=== PATIENT | female | born 1960 | race Caucasian/White ===

== ENCOUNTER 2021-03-06 14:32 | Emergency (ER) | payer OTHER ==
[2021-03-06 15:35] VITALS: BP 117/87; PULSE 104; RESP 19; TEMP 97.3
[2021-03-06] MEDS ORDERED: HYDROmorphone 0.5 MG/0.5 ML SYRINGE IVP STA (19:28)
--- NOTE | 2021-03-06 19:36 | ED ---
General Adult HPI - General Chief complaint: Abdominal Pain Stated complaint: Abd Pain Time Seen by Provider: 03/06/21 19:03 Source: patient Mode of arrival: wheelchair Limitations: no limitations - History of Present Illness Initial comments: Dictation was produced using [employer] dictation software. please excuse any grammatical, word or spelling errors. Chief Complaint: 60-year-old female presents emergency department for abdominal pain. History of Present Illness: 60-year-old female she reports that she is here in emergency department today for abdominal pain. Patient's history of colon cancer. She sees an oncologist in [place]. She is undergoing chemotherapy for colon cancer. Patient states auscultation was in emergency department in [place]. She was admitted however left AGAINST MEDICAL ADVICE because there were no beds. She states that the pain is in her mid epigastric area. She is not sure what her diagnosis was but says yes when asked if she had a blockage. Denies any nausea or vomiting. She states that she did have a computed tomography scan.. Denies any fevers. Patient having spasms of pain. The ROS documented in this emergency department record has been reviewed and confirmed by me. Those systems with pertinent positive or negative responses have been documented in the HPI. All other systems are other negative and/or noncontributory. PHYSICAL EXAM: General Impression: Alert and oriented x3, acute distress secondary to pain HEENT: Normocephalic atraumatic, extra-ocular movements intact, pupils equal and reactive to light bilaterally, mucous membranes moist. Cardiovascular: Heart regular rate and rhythm Chest: Able to complete full sentences, no retractions, no tachypnea Abdomen: abdomen soft, non-tender, non-distended, no organomegaly Musculoskeletal: Pulses present and equal in all extremities, no peripheral edema Motor: no focal deficits noted Neurological: CN II-XII grossly intact, no focal motor or sensory deficits noted Skin: Intact with no visualized rashes Psych: Normal affect and mood ED course: 60-year-old female past medical history of colon cancer in the emergency department for abdominal pain. She was in the ER in [place] recently left AGAINST MEDICAL ADVICE due to lack of beds. Signs upon arrival shows findings within acceptable limits. Laboratory evaluation obtained. CBC is unremarkable. Metabolic panel is within acceptable limits. She does have some mild acidosis and hyperglycemia of 65. Rest of labs unremarkable. Patient given analgesics.. She was reevaluated at bedside at 10:45 PM. She is sleeping and resting comfortably she does not appea r to be any significant distress. Repeat blood glucose was checked. Patient's been in the emergency department for 8 hours. We still have not received any records from [facility]. My loan secretary reports that they are too busy to send fax report from patient's recent admission. Patient is tolerating oral intake at the bedside. She states that she has been having this pain for several months. Disposition options were discussed with patient. She feels dissatisfied that there is no answer for what causing her symptoms. She was to be discharged. However at this point patient does appear to be stable for discharge. Patient is strongly advised to follow-up with her primary care doctor as soon as possible. Return precautions discussed. - Related Data Home Medications Medication Instructions Recorded Confirmed Cranberry Fruit Extract [Cranberry] 500 mg PO DAILY 03/06/21 03/06/21 Cyanocobalamin (Vitamin B-12) 1,000 mcg PO DAILY 03/06/21 03/06/21 [Vitamin B-12] Docusate [Colace] 100 mg PO DAILY 03/06/21 03/06/21 Folic Acid 1 mg PO DAILY 03/06/21 03/06/21 Gabapentin [Neurontin] 300 mg PO BID 03/06/21 03/06/21 HYDROcodone/APAP 10-325MG [[place]dridge 1 tab PO Q6HR PRN 03/06/21 03/06/21 10-325] Lidocaine-Prilocaine Cream [Emla 1 applic TOPICAL DAILY PRN 03/06/21 03/06/21 Cream 2.5%/2.5%] Prochlorperazine Maleate 10 mg PO Q8H PRN 03/06/21 03/06/21 Promethazine [Phenergan] 25 mg PO Q6HR PRN 03/06/21 03/06/21 Pyridoxine HCl (Vitamin B6) 100 mg PO DAILY 03/06/21 03/06/21 [Vitamin B-6] fentaNYL 25MCG/HR PATCH [Duragesic 1 patch TRANSDERM Q72H PRN 03/06/21 03/06/21 25MCG/HR] lisinopriL [Zestril] 20 mg PO DAILY PRN 03/06/21 03/06/21 ondansetron HCL [Zofran] 8 mg PO Q8H PRN 03/06/21 03/06/21 Allergies Allergy/AdvReac Type Severity Reaction Status Date / Time No Known Allergies Allergy Verified 03/06/21 20:37 Review of Systems ROS Statement: Those systems with pertinent positive or pertinent negative responses have been documented in the HPI. ROS Other: All systems not noted in ROS Statement are negative. Past Medical History Additional Past Medical History / Comment(s): colon cancer History of Any Multi-Drug Resistant Organisms: None Reported Past Surgical History: No Surgical Hx Reported Smoking Status: Current every day smoker Past Alcohol Use History: None Reported Past Drug Use History: None Reported General Exam Limitations: no limitations Course Vital Signs 03/06/21 15:32 Temperature 97.3 F L Pulse Rate 104 H Respiratory 19 Rate Blood Pressure 117/87 O2 Sat by Pulse 97 Oximetry Medical Decision Making - Lab Data Result diagrams: 03/06/21 20:10 03/06/21 20:10 Lab Results 03/06/21 03/06/21 03/06/21 Range/Units 20:10 20:10 22:53 WBC 9.9 (3.8-10.6) k/uL RBC 4.35 (3.80-5.40) m/uL Hgb 15.6 (11.4-16.0) gm/dL Hct 45.9 (34.0-46.0) % MCV 105.5 H (80.0-100.0) fL MCH 36.0 H (25.0-35.0) pg MCHC 34.1 (31.0-37.0) g/dL RDW 17.9 H (11.5-15.5) % Plt Count 512 H (150-450) k/uL MPV 7.7 Neutrophils % 68 % Lymphocytes % 23 % Monocytes % 5 % Eosinophils % 1 % Basophils % 1 % Neutrophils # 6.7 (1.3-7.7) k/uL Lymphocytes # 2.3 (1.0-4.8) k/uL Monocytes # 0.5 (0-1.0) k/uL Eosinophils # 0.1 (0-0.7) k/uL Basophils # 0.1 (0-0.2) k/uL Manual Slide Review Performed Anisocytosis Slight Macrocytosis Marked A Sodium 132 L (137-145) mmol/L Potassium 4.8 (3.5-5.1) mmol/L Chloride 98 (98-107) mmol/L Carbon Dioxide 18 L (22-30) mmol/L Anion Gap 16 mmol/L BUN 17 (7-17) mg/dL Creatinine 0.53 (0.52-1.04) mg/dL Est GFR (CKD-EPI)AfAm >90 (>60 ml/min/1.73 sqM) Est GFR (CKD-EPI)NonAf >90 (>60 ml/min/1.73 sqM) Glucose 65 L (74-99) mg/dL POC Glucose (mg/dL) 66 L (75-99) mg/dL POC Glu Flash Ranging Crewmember Elizabeth Herndon Calcium 10.5 H (8.4-10.2) mg/dL Total Bilirubin 0.5 (0.2-1.3) mg/dL AST 36 (14-36) U/L ALT 21 (4-34) U/L Alkaline Phosphatase 99 (38-126) U/L Total Protein 7.4 (6.3-8.2) g/dL Albumin 4.4 (3.5-5.0) g/dL Lipase 79 (23-300) U/L Disposition Clinical Impression: Abdominal pain Disposition: HOME SELF-CARE Condition: Good Instructions (If sedation given, give patient instructions): Abdominal Pain (ED) Is patient prescribed a controlled substance at d/c from ED?: No Referrals: Jeremías Thomas DO [Primary Care Provider] - 1-2 days
--- NOTE | 2021-03-06 20:06 | XR ---
EXAMINATION TYPE: XR abdomen 1V DATE OF EXAM: 03/06/2021 COMPARISON: None INDICATION: Abdomen pain history of colon cancer TECHNIQUE: Single view abdomen upright view FINDINGS: There is a normal bowel gas pattern. Psoas margins are normal. No free air is evident. No differential air-fluid levels are evident. No organomegaly is present. Scoliosis to the lumbar spine. IMPRESSION: 1. No acute abnormality.
[2021-03-06 20:26] LABS: Anisocytosis Slight; Basophils # (A) 0.1 k/uL (0-0.2); Basophils % (A) 1 %; Eosinophils # (A) 0.1 k/uL (0-0.7); Eosinophils % (A) 1 %; HCT 45.9 % (34.0-46.0); HGB 15.6 gm/dL (11.4-16.0); Lymphocytes # (A) 2.3 k/uL (1.0-4.8); Lymphocytes % (A) 23 %; MCHC 34.1 g/dL (31.0-37.0); MCV 105.5 fL (80.0-100.0); Macrocytosis Marked; Mean Platelet Volume 7.7; Monocytes # (A) 0.5 k/uL (0-1.0); Monocytes % (A) 5 %; Neutrophils # (A) 6.7 k/uL (1.3-7.7); Neutrophils % (A) 68 %; Platelet Count 512 k/uL (150-450); RBC 4.35 m/uL (3.80-5.40); RDW 17.9 % (11.5-15.5); WBC 9.9 k/uL (3.8-10.6)
[2021-03-06 20:36] LABS: ALT 21 U/L (4-34); AST 36 U/L (14-36); African American GFR (CKD) >90 (>60 ml/min/1.73 sqM); Albumin 4.4 g/dL (3.5-5.0); Alkaline Phosphatase 99 U/L (38-126); Anion Gap 16 mmol/L; Blood Urea Nitrogen 17 mg/dL (7-17); Calcium 10.5 mg/dL (8.4-10.2); Carbon Dioxide 18 mmol/L (22-30); Chloride 98 mmol/L (98-107); Glucose 65 mg/dL (74-99); Lipase 79 U/L (23-300); Non-African American GFR(CKD) >90 (>60 ml/min/1.73 sqM); Potassium 4.8 mmol/L (3.5-5.1); Sodium 132 mmol/L (137-145); Total Bilirubin 0.5 mg/dL (0.2-1.3); Total Protein 7.4 g/dL (6.3-8.2)
[2021-03-06 22:57] LABS: Glucose,Whole Blood 66 mg/dL (75-99)
== END 2021-03-06 23:01 | disposition home or self-care (01) ==
LOC: EC 14:32
DX: R10.13 Epigastric pain (principal); E87.2 Acidosis; R73.9 Hyperglycemia, unspecified; F17.200 Nicotine dependence, unspecified, uncomplicated; Z85.038 Personal history of other malignant neoplasm of large intestine; Z79.899 Other long term (current) drug therapy
CPT/HCPCS: 36415; 80053; 83690; 85025; 74018; 99284; 96374; J1170